=== PATIENT | female | born 1990 | race Caucasian/White ===

== ENCOUNTER 2017-05-28 23:07 | Emergency (ER) | payer OTHER ==
[~2017-05-28] VITALS: Ht 162.6 cm; Wt 72.6 kg
[~2017-05-28 23:07] MED LIST: ACETAMINOPHEN PO; ACYCLOVIR400 MG PO; AMOXICILLIN500 M1 PO; AMOXIL500 M1 PO; BACTROBAN15 GM TOP; DEPO-PROVE150 MG/1 M; DOXYCYCLINE HY100 M1 PO; FLEXERIL10 MG PO; GUAIFENESIN400 M1 PO; IBUPROFEN100 M1; IBUPROFEN400 MG PO; IBUPROFEN600 MG PO; IBUPROFEN800 MG PO; MEDROL4 MG/DOSE- PO; METROGEL60 GM TP; NAPROSYN125 MG/5 M PO; NAPROSYN500 MG PO; NAPROXEN375 MG PO; NO MEDICATIONS; ORUDIS75 M1 PO; PEPCID PO; PHENERGAN DM1 ML PO; PHENERGAN SUPP25 MG PR; PHENERGAN25 MG PO; STEROIDS; TAMIFLU75 M1 PO; VALIUM2 MG PO; VOLTAREN75 MG PO; ZITHROMAX PO; ZYRTEC PO
[2017-05-28] MEDS ORDERED: FLEXERIL10 MG (23:15)
[2017-05-28] MEDS ORDERED: LORTAB 5-325 M1 EACH (23:16)
[2017-05-29 00:14] LABS: URINE APPEARANCE CLEAR; URINE BILIRUBIN NEG (NEG); URINE BLOOD NEG (NEG); URINE COLOR YELLOW; URINE GLUCOSE NEG (NORM); URINE KETONE NEG (NEG); URINE LEUKOCYTE ESTERASE NEG (NEG); URINE NITRATE NEG (NEG); URINE PH 6.5 (5-8); URINE PROTEIN NEG (NEG); URINE SOURCE CLEAN CATCH; URINE SPECIFIC GRAVITY >=1.030 (1.003-1.035)
[2017-05-29 00:17] LABS: MICRO INDICATED? NO
== END 2017-05-29 00:55 | disposition home or self-care (01) ==
LOC: SED 23:07
PROVIDERS: Emergency Medicine
DX: M54.5 Low back pain (principal); F17.210 Nicotine dependence, cigarettes, uncomplicated
CPT/HCPCS: 81003; 99283